=== PATIENT | female | born 1960 | race Caucasian/White ===

== ENCOUNTER 2019-10-26 14:09 | Outpatient (CLI) | payer OTHER, SELFPAY ==
--- NOTE | ~2019-10-26 | MM_ITS ---
EXAMINATION: MM screening yael BI w lulú HISTORY: Screening mammogram TECHNIQUE: Craniocaudal and mediolateral oblique 3-D tomosynthesis images were obtained and synthetic 2-D images were generated. CAD analysis was submitted and interpreted. COMPARISON: 05/25/2014 BREAST PARENCHYMAL COMPOSITION: There are scattered areas of fibroglandular density. FINDINGS: The left breast is stable. There is a new focal asymmetry superiorly in the right breast on MLO view. IMPRESSION: 1. New focal right breast asymmetry on MLO view. 2. Additional mammographic views and possible breast ultrasound are recommended. BI-RADS Category 0: Incomplete: Needs additional imaging evaluation. Reviewed, dictated and finalized at location A. IMPRESSION: 1. New focal right breast asymmetry on MLO view. 2. Additional mammographic views and possible breast ultrasound are recommended . BI-RADS Category 0: Incomplete: Needs additional imaging evaluation.
== END 2019-10-26 14:10 | disposition home or self-care (01) ==
LOC: ANHIMG 14:11
PROVIDERS: PCP Family Medicine; Visit Provider Family Medicine
DX: Z12.31 Encounter for screening mammogram for malignant neoplasm of breast (principal); R92.8 Other abnormal and inconclusive findings on diagnostic imaging of breast
CPT/HCPCS: 77063; 77067

== ENCOUNTER 2019-10-29 13:00 | Outpatient (CLI) | payer OTHER, SELFPAY ==
--- NOTE | ~2019-10-29 | MMUS_ITS ---
EXAMINATION: MM diagnostic mammo unilat RT, US breast RT limited HISTORY: Follow-up breast asymmetry TECHNIQUE: Additional 3-D tomosynthesis images of the right breast were performed and synthetic 2-D i mages were generated. CAD analysis was submitted and interpreted. High resolution right breast ultras ound was performed. COMPARISON: 10/26/2019 FINDINGS: MAMMOGRAPHIC FINDINGS: Breast composed of scattered areas of fibroglandular density. There are no suspicious masses, calcifi cations or architectural distortion in the right breast to suggest malignancy. ULTRASOUND: Limited right breast ultrasound: Normal heterogeneous echotexture in the right breast without focal mass. IMPRESSION: 1. No mammographic or sonographic evidence for malignancy in the right breast. 2. Routine yearly screening mammogram and regular clinical breast examination are recommended. BI-RADS Category 1: Negative Reviewed, dictated and finalized at location A. IMPRESSION: 1. No mammographic or sonographic evidence for malignancy in the right breast. 2. Routine yearly screening mammogram and regular clinical breast examination a re recommended. BI-RADS Category 1: Negative
== END 2019-10-29 13:01 | disposition home or self-care (01) ==
LOC: ANHIMG 13:02
PROVIDERS: PCP Family Medicine; Visit Provider Family Medicine
DX: R92.8 Other abnormal and inconclusive findings on diagnostic imaging of breast (principal)
CPT/HCPCS: 76642; 77065

== ENCOUNTER 2020-03-28 00:50 | Outpatient (CLI) | payer OTHER, SELFPAY ==
[2020-03-29 13:49] LABS: SARS-CoV-2 RNA PCR Negative
== END 2020-03-28 00:51 | disposition home or self-care (01) ==
LOC: ANHCOVIDDT 00:50
PROVIDERS: Visit Provider Internal Medicine Gastroenterology
DX: Z01.812 Encounter for preprocedural laboratory examination (principal); Z20.828 Contact with and (suspected) exposure to other viral communicable diseases
CPT/HCPCS: 87635; C9803; U0003

== ENCOUNTER 2020-03-30 03:02 | Day surgery (SDC) | payer OTHER, SELFPAY ==
[2020-03-25 13:23] VITALS: BMI 27.5
--- NOTE | 2020-03-30 07:23 | WPDANESEPPF ---
Anes - Initial Pre Proc Eval Procedure: Operation Date: 03/30/20 12:00 Proposed Procedures p Esophagogastroduodenoscopy&Screen Colon - Aniceto Perdomo MD Date/Time: 03/30/20 07:23 Surgeon: Aniceto Perdomo MD Pre Op Diagnosis: Neoplasm Screening, GERD Patient Data Age: 60 Gender: F Height: 1.65 m Weight: 75 kg Allergies Allergy/AdvReac Type Severity Reaction Status Date / Time latex Allergy Mild Rash Verified 03/30/20 11:12 Home Medications Medication Instructions Recorded Confirmed Type metoprolol tartrate 25 mg tablet 25 mg PO DAILY #30 tablet 11/30/19 03/25/20 Rx famotidine 20 mg PO BID 03/25/20 03/25/20 History Patient hx anesthesia problems: none Family hx anesthesia problems: none [facility] Social History Social History (Updated 03/17/20 @ 11:16 by Nayely Adhikari) Social History: Years smoked: 30 Smoking status: Former smoker Tobacco type: cigarettes Second hand tobacco smoke exposure: Yes Smoking end date: 06/24/19 Alcohol intake: never Substance use: never Substance use type: does not use Living arrangements: alone Gender identity (if verbalized by the patient): Female Spiritual care concerns: No Anes - Eval Final PreProcedure Day of Procedure 03/30/20 07:23 Patient weight: overweight Heart: regular rate and rhythm Lungs: clear to auscultation and normal air movement Airway: Mallampati scale class II Neurological: alert and oriented Last oral intake: >/= 8 hours ASA classification: III Emergent: no Anesthetic plan: proceed Anesthesia type and monitoring: general GIVS and standard monitoring Informed Consent: The patient's anesthetic plan and its attendant risks and benefits were discussed with the patient/family/POA. Questions were solicited and answers provided to the satisfaction of the patient/family/POA.
[2020-03-30 11:15] VITALS: BP 126/95; PULSE 69; RESP 18; TEMP 36.6; O2SAT 98; BMI 25.9
[2020-03-30] MEDS: LACTATED RINGERS 1,000 ML 150 ML IV CONT (11:27)
--- NOTE | 2020-03-30 12:12 | PM.HPGS ---
History of Present Illness History of Present Illness Consent: Risks, benefits, and alternatives have been discussed and questions answered. Patient agrees to proceed with procedure. Chief complaint: Neoplasm Screening, GERD Narrative: Christina Givens is a 60 year old female here with gerd, bloating and history of colon polyps Review of Systems Constitutional: Constitutional: Denies headache(s) and Denies weakness Eyes: Eyes: Denies blurry vision ENT: Reports Normal hearing present, Denies headache(s) and Denies neck pain Cardiovascular: Cardiovascular: Denies chest pain and Denies dyspnea Respiratory: Respiratory: Denies dyspnea Gastrointestinal: Gastrointestinal: Reports no additional gastrointestinal complaints Genitourinary: Genitourinary: Denies dysuria Musculoskeletal: Musculoskeletal: Denies neck pain Integumentary/Breasts: Skin/Breast: Denies dry skin Neurologic: Reports Normal hearing present, Denies headache(s) and Denies weakness Psychiatric: Psychiatric: Denies anxiety Endocrine: Endocrine: Denies change in body appearance Hematologic/Lymphatic: Hematologic/Lymphatic: Denies easy bleeding Allergic/Immunologic: Allergic/Immunologic: Denies urticaria [facility] Social History Social History (Updated 03/17/20 @ 11:16 by Nayely Adhikari) Social History: Years smoked: 30 Smoking status: Former smoker Tobacco type: cigarettes Second hand tobacco smoke exposure: Yes Smoking end date: 06/24/19 Alcohol intake: never Substance use: never Substance use type: does not use Living arrangements: alone Gender identity (if verbalized by the patient): Female Spiritual care concerns: No Meds Home Medications and Allergies Home Medications Medication Instructions Recorded Confirmed Type metoprolol tartrate 25 mg tablet 25 mg PO DAILY #30 tablet 11/30/19 03/25/20 Rx famotidine 20 mg PO BID 03/25/20 03/25/20 History Allergies Allergy/AdvReac Type Severity Reaction Status Date / Time latex Allergy Mild Rash Verified 03/30/20 11:12 Vital Signs Vital Signs - 24 hr 03/30/20 11:15 Temperature 97.9 F Pulse Rate 69 Respiratory Rate 18 Blood Pressure 126/95 H Pulse Oximetry 98 Exam Const: General: comfortable and no acute distress HENMT: General nose exam: Normal nares present Eyes: General: appearance normal, both eyes and all related structures Neck: Neck: no JVD Resp: Auscultation: clear to auscultation bilaterally Cardio: Rate: regular rate Rhythm: regular rhythm GI: Inspection: non-distended GI Palp: Yes Soft to palpation Skin: General skin exam: normal color Neuro: General: gait normal Speech: normal speech Extrem: General: normal to inspection Psych: Mental Status: mental status grossly normal Assessment and Plan Assessment and plan (1) Epigastric abdominal pain: Code(s): R10.13 - Epigastric pain Status: Acute Assessment and Plan: will proceed with egd (2) GERD (gastroesophageal reflux disease): Code(s): K21.9 - Gastro-esophageal reflux disease without esophagitis Status: Acute (3) Abdominal bloating: Code(s): R14.0 - Abdominal distension (gaseous) Status: Acute (4) Colon polyp: Code(s): K63.5 - Polyp of colon Status: Acute Assessment and Plan: due to have a colonoscopy
[2020-03-30 12:48] VITALS: BP 104/69; PULSE 66; RESP 13; O2SAT 98
[2020-03-30 12:58] VITALS: BP 116/71; PULSE 70; RESP 21; O2SAT 98
[2020-03-30 13:08] VITALS: BP 114/80; PULSE 59; RESP 20; O2SAT 99
== END 2020-03-30 13:30 | disposition home or self-care (01) ==
PROVIDERS: PCP Family Medicine; Visit Provider Internal Medicine Gastroenterology
PROC: 0DJ08ZZ Inspection of Upper Intestinal Tract, Via Natural or Artificial Opening Endoscopic (ICD-10-PCS; CPT 43235; principal; 2020-03-30 12:00)
DX: Z12.11 Encounter for screening for malignant neoplasm of colon (principal); K57.30 Diverticulosis of large intestine without perforation or abscess without bleeding; K64.8 Other hemorrhoids; K31.7 Polyp of stomach and duodenum; K29.50 Unspecified chronic gastritis without bleeding; Z87.891 Personal history of nicotine dependence
CPT/HCPCS: 45378; 43239; 88305; J2704; J7120

== ENCOUNTER 2020-05-16 11:19 | Outpatient (CLI) | payer OTHER, SELFPAY ==
--- NOTE | ~2020-05-16 | US_ITS ---
US right upper quadrant INDICATION: Right upper quadrant pain PROCEDURE: Realtime right upper abdominal ultrasound. COMPARISON: No prior studies for comparison. FINDINGS: The pancreas is normal without focal mass or pancreatic ductal dilation. There is a 2.4 cm liver cyst. No solid hepatic masses are identified. There are gallbladder polyps, largest measuring 6 mm. There is normal directional flow in the portal vein. The gallbladder is normal without stones, gallbladder wall thickening or pericholecystic fluid. Comm on bile duct measures 3.5 mm. No sonographic Lobo's sign. IMPRESSION: 1: Gallbladder polyps, largest measuring 6 mm. Reviewed, dictated and finalized at location A. ON PICTURE CAMERA OPERATOR
== END 2020-05-16 11:20 | disposition home or self-care (01) ==
LOC: ANHIMG 11:27
PROVIDERS: PCP Family Medicine; Visit Provider Family Medicine
DX: R10.11 Right upper quadrant pain (principal); K82.4 Cholesterolosis of gallbladder
CPT/HCPCS: 76705

== ENCOUNTER 2020-06-22 10:17 | Outpatient (CLI) | payer OTHER, SELFPAY ==
--- NOTE | ~2020-06-22 | NM_ITS ---
EXAMINATION: NM hepatobiliary w pharm DATE: 06/22/2020 12:08 INDICATION: Chronic cholecystitis. Right upper quadrant pain. COMPARISON: CT dated 12/09/2018 and ultrasound dated 05/16/2020 TECHNIQUE: 4.7 mCi Tc-99m mebrofenin (Choletec) was administered intravenously. Scintigraphic images of the abdomen were obtained for one hour. 1.4 mcg sincalide (Kinevac) was administered by slow intr avenous infusion, and imaging was continued for 30 minutes. Gallbladder ejection fraction was calcula carolyn by the technologist. FINDINGS: There is normal clearance of radiotracer from the blood pool. There is homogeneous tracer uptake by t he liver. Activity progresses to the gallbladder and bowel. The gallbladder ejection fraction (GBEF) is 10% (normal 10-90%, but most patient with gallbladder dysfunction have GBEF < 35% which does over lap with the normal range). IMPRESSION: 1. . Gallbladder ejection fraction is at the lowest limits of normal. This could be normal but is a lso well within the range of overlap with gallbladder dysfunction or chronic cholecystitis in the brien ropriate clinical setting. Reviewed, dictated and finalized at location A. SCHOOL GUIDANCE COUNSELOR IMPRESSION: 1. . Gallbladder ejection fraction is at the lowest limits of normal. This co uld be normal but is also well within the range of overlap with gallbladder dys function or chronic cholecystitis in the appropriate clinical setting.
== END 2020-06-22 10:18 | disposition home or self-care (01) ==
PROVIDERS: PCP Family Medicine; Visit Provider Surgery
DX: K81.1 Chronic cholecystitis (principal)
CPT/HCPCS: 78227; A9537; J2805

== ENCOUNTER → 2020-07-30 01:07 | Outpatient (CLI) | payer BC, SELFPAY ==
[2020-07-30 20:39] LABS: SARS-CoV-2 RNA PCR Negative
== END ==
PROVIDERS: Family Provider Family Medicine; PCP Family Medicine; Visit Provider Surgery
DX: Z01.812 Encounter for preprocedural laboratory examination (principal); Z20.822 Contact with and (suspected) exposure to COVID-19
CPT/HCPCS: C9803; U0003; U0005

== ENCOUNTER 2020-07-30 09:03 | Outpatient (CLI) | payer BC, SELFPAY ==
--- NOTE | 2020-07-30 09:04 | ECG_ITS ---
Measurements Intervals [place] Rate: 53 P: 12 LA: 152 QRS: 21 QRSD: 109 T: 15 QT: 449 QTc: 425 Interpretive Statements SINUS BRADYCARDIA DELAYED PRECORDIAL R/S TRANSITION LOW QRS VOLTAGE IN PRECORDIAL LEADS BORDERLINE T WAVE ABNORMALITY- INFERIOR LEADS BORDERLINE ECG Electronically Signed On 07-30-2020 11:05:09 GORE STITCHER by Ho Torres D.O.
[2020-07-30 09:58] LABS: Alanine Aminotransferase 19 U/L (4-35); Albumin Level 4.3 g/dL (3.5-5.1); Alkaline Phosphatase 56 U/L (38-126); Amylase 59 U/L (30-110); Aspartate Amino Transferase 31 U/L (14-36); Bilirubin,Total 0.6 mg/dL (0.2-1.3); Lipase 58 U/L (23-300)
== END 2020-07-30 09:04 | disposition home or self-care (01) ==
LOC: ANHLAB 09:04
PROVIDERS: PCP Family Medicine; Visit Provider Surgery
DX: Z01.818 Encounter for other preprocedural examination (principal); K81.1 Chronic cholecystitis; I10 Essential (primary) hypertension; R00.1 Bradycardia, unspecified
CPT/HCPCS: 36415; 80076; 82150; 83690; 86850; 86900; 86901; 93005

== ENCOUNTER 2020-08-03 01:00 | Day surgery (SDC) | payer BC, SELFPAY ==
[2020-07-29 17:45] VITALS: BMI 25.8
--- NOTE | 2020-08-02 10:33 | PM.SD2 ---
Same Day Admit/Disch: HPI History of Present Illness Chief complaint: Chronic Cholecystitis, gallbladder polyps Narrative: Christina Givens is a 60 year old female Whom I saw in the office in late May for complaints of chronic nausea and postprandial heartburn that radiates to her back. This heartburn has not responded to Nexium even twice a day. The patient had an EGD and colonoscopy by Dr. Gentile in March. The colonoscopy was negative and the EGD showed some chronic gastritis. The gastritis did not respond to acid lowering agents even Nexium twice a day. The patient had a right upper quadrant ultrasound 05/16/2020 that showed gallbladder polyps. The largest polyp measured 6 mm. After I saw the patient in May, she had an hepatobiliary scan which showed a very low gallbladder ejection fraction of only 10%. She is taken to surgery now for laparoscopic cholecystectomy for chronic cholecystitis. [facility] Past Medical History Medical History Benign essential HTN Colon polyp Diverticulosis Gastritis GERD (gastroesophageal reflux disease) Hemorrhoid prolapse Intestinal metaplasia of gastric mucosa Lumbar spondylosis Mixed hyperlipidemia Spondylosis of lumbosacral spine with radiculopathy Surgical History Surgical History Hx of hysterectomy Hx of removal of ovary Status post lumbar spine surgery for decompression of spinal cord Family History Family History Mother Breast cancer Father Bladder cancer COVID-19 Other Family history of malignant neoplasm of urinary bladder Social History Social History Social History: Smoking packs per day: 1 Smoking cigarettes per day: 20.0 Years smoked: 20 Smoking pack-years: 20.00 Smoking status: Former smoker Tobacco type: cigarettes Second hand tobacco smoke exposure: Yes Smoking end date: 06/24/19 Alcohol intake: never Substance use: never Substance use type: does not use Living arrangements: alone Additional occupation/education comments: [employer] Gender identity (if verbalized by the patient): Female Sexual Orientation (if Verbalized by the Patient): Straight or Heterosexual Spiritual care concerns: No Same Day Admit/Disch: Med Pre-admit Medications Home Medications Medication Instructions Recorded Confirmed Type esomeprazole magnesium 20 mg 20 mg PO BID #60 cap 05/23/20 08/03/20 Rx capsule,delayed release metoprolol tartrate 25 mg tablet 25 mg PO DAILY #30 tablet 05/23/20 08/03/20 Rx cholecalciferol (vitamin D3) 125 125 mcg PO DAILY 06/16/20 08/03/20 History mcg (5,000 unit) capsule ondansetron HCl 4 mg tablet 4 mg PO Q6H PRN #12 tablet 06/27/20 08/03/20 Rx alprazolam 0.25 mg tablet 0.25 mg PO BID PRN #60 tablet 07/13/20 08/03/20 Rx hydrocodone-acetaminophen 1 - 2 tablet PO Q6H PRN #7 tablet 08/03/20 Rx ketorolac 10 mg PO Q6H 4 Days #16 tablet 08/03/20 Rx Exam Const: General: comfortable, no acute distress, alert and awake HENMT: Head: normocephalic and atraumatic Mouth: Yes Normal oral and palatal mucosa present Eyes: Conjunctivae: conjunctivae normal Pupils: Equal, round and reactive pupils present EOM: EOMs intact bilaterally Neck: Neck: normal visual inspection, no lymphadenopathy and nontender Resp: Effort & Inspection: normal respiratory effort Auscultation: clear to auscultation bilaterally Cardio: Rate: regular rate Rhythm: regular rhythm Heart sounds: no gallops, no murmurs and no rubs GI: Inspection: non-distended GI Palp: Yes Soft to palpation, No Tenderness to palpation present (GI), No Hepatomegaly present and No Splenomegaly present Skin: Lesions: no lesions Rashes: no rashes Neuro: General: no focal motor deficits and CN's II-XI
--- NOTE | 2020-08-02 12:23 | WPDANESEPPF ---
Anes - Initial Pre Proc Eval Procedure: Operation Date: 08/03/20 10:30 Proposed Procedures p Laparoscopic Cholecystectomy - Hesham Victoria MD Date/Time: 08/02/20 12:23 Surgeon: Hesham Victoria MD Pre Op Diagnosis: Chronic Cholecystitis Patient Data Age: 60 Gender: F Height: 1.65 m Weight: 70.5 kg Allergies Allergy/AdvReac Type Severity Reaction Status Date / Time latex Allergy Mild Rash Verified 08/03/20 08:33 Home Medications Medication Instructions Recorded Confirmed Type esomeprazole magnesium 20 mg 20 mg PO BID #60 cap 05/23/20 08/03/20 Rx capsule,delayed release metoprolol tartrate 25 mg tablet 25 mg PO DAILY #30 tablet 05/23/20 08/03/20 Rx cholecalciferol (vitamin D3) 125 125 mcg PO DAILY 06/16/20 08/03/20 History mcg (5,000 unit) capsule ondansetron HCl 4 mg tablet 4 mg PO Q6H PRN #12 tablet 06/27/20 08/03/20 Rx alprazolam 0.25 mg tablet 0.25 mg PO BID PRN #60 tablet 07/13/20 08/03/20 Rx Patient hx anesthesia problems: none Family hx anesthesia problems: none [facility] Past Medical History Medical History Benign essential HTN Colon polyp Diverticulosis Gastritis GERD (gastroesophageal reflux disease) Hemorrhoid prolapse Intestinal metaplasia of gastric mucosa Lumbar spondylosis Mixed hyperlipidemia Spondylosis of lumbosacral spine with radiculopathy Surgical History Surgical History Hx of hysterectomy Hx of removal of ovary Status post lumbar spine surgery for decompression of spinal cord Family History Family History Mother Breast cancer Father Bladder cancer COVID-19 Other Family history of malignant neoplasm of urinary bladder Social History Social History Social History: Smoking packs per day: 1 Smoking cigarettes per day: 20.0 Years smoked: 20 Smoking pack-years: 20.00 Smoking status: Former smoker Tobacco type: cigarettes Second hand tobacco smoke exposure: Yes Smoking end date: 06/24/19 Alcohol intake: never Substance use: never Substance use type: does not use Living arrangements: alone 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 Gender identity (if verbalized by the patient): Female Sexual Orientation (if Verbalized by the Patient): Straight or Heterosexual Spiritual care concerns: No Anes - Eval Final PreProcedure Day of Procedure 08/02/20 12:23 Patient weight: overweight Heart: regular rate and rhythm Lungs: clear to auscultation and normal air movement Airway: Mallampati scale class II Neurological: alert and oriented Last oral intake: >/= 8 hours ASA classification: II Emergent: no Anesthetic plan: proceed Anesthesia type and monitoring: general ETT Informed Consent: The patient's anesthetic plan and its attendant risks and benefits were discussed with the patient/family/POA. Questions were solicited and answers provided to the satisfaction of the patient/family/POA.
[2020-08-03] VITALS (8 sets, daily range): BP systolic 112–139; BP diastolic 69–81; PULSE 50–76; RESP 14–20; TEMP 36.3–36.8; O2SAT 95–99
--- NOTE | 2020-08-03 07:00 | WPDHPUPDATE1 ---
History and Physical Update Update Date/Time: 08/03/20 07:00 History and Physical has been reviewed, including an updated exam of the patient. There are NO changes in the patient's condition. Risks, benefits, and alternatives have been discussed and questions answered. Patient agrees to proceed with procedure.
[2020-08-03] MEDS: ACETAMINOPHEN 500 MG TABLET 1000 MG PO (08:24)
--- NOTE | 2020-08-03 08:47 | SUR.PREOP ---
0820-PT PROVIDES # FOR FRIEND FOR RIDE ONLY AND #FOR [facility] FOR EMERGENCY ONLY--DOES NOT WANT ANY UPDATES GIVEN.
[2020-08-03] MEDS: LACTATED RINGERS 1,000 ML 30 ML IV CONT ×2 (09:20→11:36)
[2020-08-03] MEDS: KETOROLAC 15 MG/ML VIAL (*BKC) IV PUSH (09:21)
--- NOTE | 2020-08-03 09:43 | SUR.PREOP ---
0940-UP TO BR TO VOID.
--- NOTE | 2020-08-03 10:36 | P.OP_ITS ---
Procedure Note - Detailed Date of procedure: 08/03/20 Pre-op diagnosis: Chronic Cholecystitis, gallbladder polyps Chronic cholecystitis, gallbladder polyps Post-op diagnosis: same Procedure performed: Laparoscopic cholecystectomy Description of procedure: The patient was taken to surgery and induced into general anesthesia. The abdomen was prepped and draped. Trocars were placed in the usual fashion using 0.5% Marcaine with epinephrine and applied Medical optical trocars. A 5 millimeter camera was used. The gallbladder was decompressed with a laparoscopic aspirator. The cholecystotomy was c losed with a Vicryl endo-loop. The gallbladder was retracted anterosuperiorly. Adhesions to the gallbladder were taken down so that the cholecystohepatic triangle was exposed. Traction was placed on the infundibulum. The cystic duct and cystic artery were dissected out very clearly. The gallbladder was dissected off the liver at its lower 3rd. Critical view was achieved. We securely clipped and divided the cystic duct and cystic artery. The gallbladder was then further retracted so that the peritoneal attachments to the liver could be divided. Once the gallbladder was freed entirely, it was placed in an Endo-Catch bag and retrieved through the 10 11 epigastric trocar site. The epigastric trocar was then replaced. We reviewed the right upper quadrant. It was irrigated and suctioned. All looked good with no evidence of bleeding or bile leakage. We evacuated CO2 and removed the trocar sleeves. Skin wounds were closed with subcuticular 4 O Monocryl skin suture. The wounds were dressed with Exofin surgical adhesive. Patient was awakened and taken to recovery in good condition. Sponge and needle counts were correct x2. Anesthesia: GETA and local (0.5% Marcaine with epinephrine) Surgeon: Hesham Victoria MD Shotblast Operator: Elvia BLANDON Estimated blood loss (mL): 5 Drains: No Packing: No Pathology: yes (Gallbladder) Complications: None Condition: stable Disposition: PACU Findings: Mild chronic inflammation, no gallstones noted. No biliary ductal dilatation, no liver abnormalities.
[2020-08-03] MEDS: ceFAZolin 2 GM/D5W 50 ML 2 GM/50 ML BAG IVPB (10:40)
[2020-08-03] MEDS: BUPIVACAINE/EPINEPHRINE 0.5% 30 ML VIAL 20 ML INFILTRATE (10:52)
[2020-08-03] MEDS: fentaNYL CITRATE INJ (*CRX) 100 MCG/2 ML VIAL 25 MCG IV PUSH (11:59)
--- NOTE | 2020-08-03 13:36 | SUR.PHASEII ---
1325; DR MILLER SPOKE TO PT. 1330; PT AWAKE AND ALERT. DENIES PAIN OR NAUSEA. STATES FEELS PRETTY GOOD.
== END 2020-08-03 14:05 | disposition home or self-care (01) ==
PROVIDERS: Family Provider Family Medicine; PCP Family Medicine; Visit Provider Surgery
PROC: 0FT44ZZ Resection of Gallbladder, Percutaneous Endoscopic Approach (ICD-10-PCS; CPT 47562; principal; 2020-08-03 10:30)
DX: K81.1 Chronic cholecystitis (principal); I10 Essential (primary) hypertension; E78.2 Mixed hyperlipidemia; K21.9 Gastro-esophageal reflux disease without esophagitis; M47.816 Spondylosis without myelopathy or radiculopathy, lumbar region; Z87.891 Personal history of nicotine dependence; F41.1 Generalized anxiety disorder
CPT/HCPCS: 47562; 88304; A9270; C1713; J0690; J1100; J1170; J1885; J2250; J2405; J2704; J2710; J3010; J7120